=== PATIENT | male | born 1975 | race Caucasian/White ===

== ENCOUNTER 2021-08-03 12:13 | Emergency (ER) | payer MEDICAID ==
[~2021-08-03] VITALS: Ht 182.9 cm; Wt 68.2 kg
[2021-08-03 12:15] VITALS: BP 126/95
--- NOTE | 2021-08-03 13:02 | PHYS DOC ---
Past Medical History Additional Past Medical Histor: EPILEPSY, PROSTATE CANCER Past Surgical History: No Surgical History General Adult EDM: Chief Complaint: FOOT INJURY PAIN HPI: HPI: Patient is a 46-year-old male who presents to the emergency department for right heel pain. Patient reports that he had a seizure yesterday and fell in August and injured his right foot. He rates his pain 3 out of 10. It is worse with bearing weight. Patient also has several abrasions noted to the top of his head , forehead and across the bridge of his nose. He reports hitting his head. He is also complaining of bilateral posterior rib pain. He used to take Keppra and Topamax for his seizures but has been off his medications for 3 months because he stated that it does not help him. Prior to yesterday his last seizure was 2 weeks ago. Patient denies any nausea, vomiting, fevers, chest pain, shortness of breath. He states that he has chronic neck and back pain. Review of Systems: Review of Systems: 14 body systems of the review of systems have been reviewed. See HPI for pertinent positive and negative responses, otherwise all other systems are negative, nonpertinent or noncontributory Heart Score: C/O Chest Pain: No Risk Factors: Risk Factors: DM, Current or recent (<one month) smoker, HTN, HLP, family history of CAD, obesity. Risk Scores: Score 0 - 3: 2.5% MACE over next 6 weeks - Discharge Home Score 4 - 6: 20.3% MACE over next 6 weeks - Admit for Clinical Observation Score 7 - 10: 72.7% MACE over next 6 weeks - Early Invasive Strategies Physical Exam: PE: Constitutional: Well developed, well nourished, no acute distress, non-toxic appearance. [] HENT: Normocephalic, 1 cm abrasion noted across the bridge of patient's nose, 1 cm abrasion noted to forehead, 3 cm abrasion noted to top right side of head, bilateral external ears normal, oropharynx moist, no oral exudates, nose normal. [] Eyes: PERRL, 4 mm pupils bilaterally, EOMI, conjunctiva normal, no discharge. [] Neck: Normal range of motion, no bony spinal tenderness, supple, no stridor. [] Cardiovascular:Heart rate regular rhythm, no murmur [] Lungs & Thorax: Bilateral breath sounds clear to auscultation, no flail chest, no obvious deformity, no wounds [] Abdomen: Bowel sounds normal, soft, no tenderness, no masses, no pulsatile masses. [] Skin: Warm, dry, no erythema, no rash. [] Back: No bony spinal tenderness, normal range of motion Extremities: No tenderness, no cyanosis, no clubbing, ROM intact, no edema. [] Right foot: Pain with palpation to right heel, range of motion intact, neuro intact, no open wounds, no obvious deformity Neurologic: Alert and oriented X 3, normal motor function, normal sensory function, no focal deficits noted. [] Psychologic: Affect normal, judgement normal, mood normal. [] Current Patient Data: Labs: Laboratory Tests Test 08/03/21 13:45 White Blood Count 5.0 x10^3/uL Red Blood Count 5.08 x10^6/uL Hemoglobin 15.7 g/dL Hematocrit 44.7 % Mean Corpuscular Volume 88 fL Mean Corpuscular Hemoglobin 31 pg Mean Corpuscular Hemoglobin Concent 35 g/dL Red Cell Distribution Width 14.8 % Platelet Count 134 x10^3/uL Neutrophils (%) (Auto) 86 % Lymphocytes (%) (Auto) 8 % Monocytes (%) (Auto) 7 % Eosinophils (%) (Auto) 0 % Basophils (%) (Auto) 0 % Neutrophils # (Auto) 4.3 x10^3/uL Lymphocytes # (Auto) 0.4 x10^3/uL Monocytes # (Auto) 0.3 x10^3/uL Eosinophils # (Auto) 0.0 x10^3/uL Basophils # (Auto) 0.0 x10^3/uL Sodium Level 131 mmol/L Potassium Level 4.0 mmol/L Chloride Level 93 mmol/L Carbon Dioxide Level 30 mmol/L Anion Gap 8 Blood Urea Nitrogen 14 mg/dL Creatinine 1.0 mg/dL Estimated GFR (Cockcroft-Gault) 80.4 BUN/Creatinine Ratio 14 Glucose Level 94 mg/dL Calcium Level 9.3 mg/dL Total Bilirubin 0.9 mg/dL Aspartate Amino Transf (AST/SGOT) 129 U/L Alanine Aminotransferase (ALT/SGPT) 70 U/L Alkaline Phosphatase 176 U/L Troponin I High Sensitivity 4 ng/L Total Protein 9.1 g/dL Albumin 3.8 g/dL Albumin/Globulin Ratio 0.7 Vital Signs: Vital Signs Date Time Temp Pulse Resp B/P (MAP) Pulse Ox O2 Delivery O2 Flow Rate FiO2 08/03/21 12:15 98.4 102 18 126/95 (105) 95 Room Air 98.4 EKG: EKG: [] Radiology/Procedures: Radiology/Procedures: []PROCEDURE: FOOT RIGHT 3V Study: XR FOOT_RIGHT 3 VIEWS Indication: Fall. Foot pain. Comparison: None. Findings: No displaced fracture. Alignment is within normal limits considering the absence of weightbearing. Maintained joint spaces. Unremarkable soft tissues. Impression: No displaced fracture or malalignment. Electronically signed by: LEÓN ORONA MD (08/03/2021 1:39 PM) [facility] DICTATED and SIGNED BY: LEÓN ORONA MD DATE: 08/03/21 [id number] 0 PROCEDURE: RIBS BILAT 3V Exam:Bilateral ribs with PA chest Date: 08/03/2021 12:58 PM Comparison: No prior Indication: Reason: fall, foot pain, chest pain Findings/ Impression: The heart is not enlarged. Mediastinal and hilar contours are normal. No focal parenchymal airspace opacity. No pleural effusion or pneumothorax. AP, Oblique and Spot images of the bilateral ribs are negative for acute displaced rib fracture. Old anterolateral left rib fractures are seen. Negative focal pleural elevation. Symmetrical intercostal spacing. It is of note that an acute non-displaced rib fracture can be in-apparent on initial post-trauma imaging. Electronically signed by: Sam Woo MD (08/03/2021 3:00 PM) [email or web address] DICTATED and SIGNED BY: SAM WOO MD DATE: 08/03/21 [id number] 0 PROCEDURE: CT HEAD AND CERVICAL SPINE WO STUDY: CT head and cervical spine without contrast INDICATION: Fall. Seizure. COMPARISON: None available. TECHNIQUE: Axial CT imaging through the head and cervical spine without the use of intravenous contrast. Sagittal and coronal reformats were obtained. One or more of the following individualized dose reduction techniques were utilized for this examination: 1. Automated exposure control 2. Adjustment of the mA and/or kV according to patient size 3. Use of iterative reconstruction technique. FINDINGS: CT head: No acute intracranial hemorrhage. Quick-white matter differentiation is maintained. No localized mass effect, midline shift or hydrocephalus. Symmetric positioning of the globes. Unremarkable retrobulbar soft tissues. Intact calvarium. CT cervical spine: No acute fracture or traumatic malalignment. No paraspinous hematoma. No significant osseous encroachment on the central canal or neural foramina. Unremarkable thyroid and lung apices. IMPRESSION: CT head: 1. No acute intracranial abnormality by CT. CT cervical spine: 1. No acute fracture or traumatic malalignment. Electronically signed by: LEÓN ORONA MD (08/03/2021 2:17 PM) [facility] DICTATED and SIGNED BY: LEÓN ORONA MD DATE: 08/03/21 [id number] 0 Course & Med Decision Making: Course & Med Decision Making Pertinent Labs and Imaging studies reviewed. (See chart for details) Patient presents to the emergency department for right foot pain after falling while having a seizure. Patient has several abrasions to his face and head. He is also reporting bilateral posterior rib pain. Work-up in the ER consisted of blood work, CT imaging of head and neck, bilateral rib x-rays. X-ray of the foot was unremarkable. Post op shoe given to patient. X-ray of ribs showed no acute findings. Lab work showed elevated liver enzymes but other than that unremarkable. Patient will need to follow-up with his primary care provider regarding the elevated LFTs. CT imaging of head and neck were negative for any acute findings. Patient advised to follow-up with his primary care provider or neurologist regarding his seizure medications. Patient reported that he did not have anymore of his seizure medications, his dosages were confirmed with pharmacy and he was discharged home with prescriptions. Patient also educated that due to these break through seizures, he should not drive a vehicle or operate machinery. Patient reports that he doesnt have a license because he got into trouble due to alcohol and got it taken away and doesnt drive. His alcohol use could be the cause of his elevated LFTs. I discussed with patient all findings and diagnostic testing as well as the need to follow-up with PCP for f urther evaluation and treatment or return to the ER if any new or worsening symptoms. Strict return precautions were also discussed at length. Patient voiced understanding and agreement with the plan. Patient is hemodynamically stable at the time of disposition. Dragon Disclaimer: Dragon Disclaimer: This electronic medical record was generated, in whole or in part, using a voice recognition dictation system. Departure Departure Impression: Primary Impression: Foot sprain Qualified Codes: S93.601A - Unspecified sprain of right foot, initial encounter Additional Impression: Seizure Disposition: HOME / SELF CARE / HOMELESS Condition: GOOD Patient Instructions: RICE - Routine Care for Injuries, Seizure, Adult Additional Instructions: You were seen in the emergency department today for right foot pain after injuring yourself during a seizure yesterday. X-ray of your foot was negative for any acute findings. To help with your foot pain, you are being placed in a postop shoe for support. Wear this for comfort. For your pain you can take ibuprofen or naproxen at home. The imaging of your head and neck were negative for any acute findings. Your blood work was mostly unremarkable other than elevated liver enzymes, this could be caused by many things like alcohol use or fatty liver disease. You need to follow-up with your primary care provider regarding these findings. You are being discharged home with prescriptions for Keppra, use this as directed. As we discussed, you cannot drive a vehicle or operate a vehicle since you are having break through seizures. I would advise you to continue taking your Keppra and Topamax as previously prescribed. Call your primary care provider tomorrow regarding your ER visit to set up a appointment. Return to the emergency department if you injure yourself again, have a seizure, chest pain, shortness of breath, new or worsening concerns. If you do not have a primary care provider to follow-up with, please see a handout of some primary care providers that you can contact tomorrow to follow- up. Scripts Levetiracetam (KEPPRA) 500 Mg Tablet 1 TAB PO BID for seizure for 30 Days, #60 TAB 0 Refills Prov: WILLOW FOSS APRN 08/03/21 WILLOW FOSS APRN Aug 03, 2021 13:02
--- NOTE | 2021-08-03 13:41 | RAD ---
Study: XR FOOT_RIGHT 3 VIEWS Indication: Fall. Foot pain. Comparison: None. Findings: No displaced fracture. Alignment is within normal limits considering the absence of weightbearing. Ma intained joint spaces. Unremarkable soft tissues. Impression: No displaced fracture or malalignment. Electronically signed by: LEÓN ORONA MD (08/03/2021 1:39 PM) [facility]
[2021-08-03 13:54] LABS: BASO % 0 % (0-3); EOS % 0 % (0-3); HEMATOCRIT 44.7 % (39.0-53.0); HEMOGLOBIN 15.7 g/dL (13.0-17.5); LYMPH # 0.4 x10^3/uL (1.0-4.8); LYMPH % 8 % (24-48); MEAN CORPUSCULAR HEMOGLOBIN 31 pg (25-35); MEAN CORPUSCULAR HGB CONC 35 g/dL (31-37); MEAN CORPUSCULAR VOLUME 88 fL (79-100); MONO # 0.3 x10^3/uL (0.0-1.1); MONO % 7 % (0-9); NEUT # 4.3 x10^3/uL (1.8-7.7); NEUT % 86 % (31-73); PLATELET COUNT 134 x10^3/uL (140-400); RED BLOOD COUNT 5.08 x10^6/uL (4.30-5.70); RED CELL DISTRIBUTION WIDTH 14.8 % (11.5-14.5)
[2021-08-03 14:06] LABS: CALCIUM 9.3 mg/dL (8.5-10.1); GFR 80.4
[2021-08-03 14:11] LABS: ALBUMIN 3.8 g/dL (3.4-5.0); ALBUMIN/GLOBULIN RATIO 0.7 (1.0-1.7); TOTAL BILIRUBIN 0.9 mg/dL (0.2-1.0); TOTAL PROTEIN 9.1 g/dL (6.4-8.2)
--- NOTE | 2021-08-03 14:19 | RAD ---
STUDY: CT head and cervical spine without contrast INDICATION: Fall. Seizure. COMPARISON: None available. TECHNIQUE: Axial CT imaging through the head and cervical spine without the use of intravenous contra st. Sagittal and coronal reformats were obtained. One or more of the following individualized dose reduction techniques were utilized for this examinat ion: 1. Automated exposure control 2. Adjustment of the mA and/or kV according to patient size 3. Use of iterative reconstruction technique. FINDINGS: CT head: No acute intracranial hemorrhage. Quick-white matter differentiation is maintained. No localized mass effect, midline shift or hydrocephalus. Symmetric positioning of the globes. Unremarkable retrobulbar soft tissues. Intact calvarium. CT cervical spine: No acute fracture or traumatic malalignment. No paraspinous hematoma. No significant osseous encroach ment on the central canal or neural foramina. Unremarkable thyroid and lung apices. IMPRESSION: CT head: 1. No acute intracranial abnormality by CT. CT cervical spine: 1. No acute fracture or traumatic malalignment. Electronically signed by: LEÓN ORONA MD (08/03/2021 2:17 PM) [facility]
--- NOTE | 2021-08-03 15:02 | RAD ---
Exam:Bilateral ribs with PA chest Date: 08/03/2021 12:58 PM Comparison: No prior Indication: Reason: fall, foot pain, chest pain Findings/ Impression: The heart is not enlarged. Mediastinal and hilar contours are normal. No focal parenchymal airspace o pacity. No pleural effusion or pneumothorax. AP, Oblique and Spot images of the bilateral ribs are negative for acute displaced rib fracture. Old anterolateral left rib fractures are seen. Negative focal pleural elevation. Symmetrical intercostal spacing. It is of note that an acute non-displaced rib fracture can be in-apparent on initial post-trauma imag ing. Electronically signed by: Sam Denise MD (08/03/2021 3:00 PM) [email or web address]
[2021-08-03] MEDS ORDERED: LEVE500T56 PO (15:44)
== END 2021-08-03 15:52 | disposition home or self-care (01) ==
LOC: ER 12:13
DX: S93.601A Unspecified sprain of right foot, initial encounter (principal); S00.31XA Abrasion of nose, initial encounter; S00.81XA Abrasion of other part of head, initial encounter; G40.909 Epilepsy, unspecified, not intractable, without status epilepticus; R07.89 Other chest pain; W18.39XA Other fall on same level, initial encounter; Y93.89 Activity, other specified; Y92.89 Other specified places as the place of occurrence of the external cause; Y99.8 Other external cause status
CPT/HCPCS: 36415; 70450; 71110; 72125; 73630; 80053; 84484; 85025; 99285-25

== ENCOUNTER 2021-11-27 16:05 | Emergency (ER) | payer MEDICAID ==
[~2021-11-27] VITALS: Ht 182.9 cm; Wt 68.1 kg
[~2021-11-27 16:05] MED LIST: LEVE500T56 PO
[2021-11-27] MEDS ORDERED: BACITRACIN TOPICAL OINT PACKET. TP ONE (16:45)
[2021-11-27] MEDS ORDERED: DIPHTH,PERTUSS(ACELL),TET TOX 0.5 ML DISP.SYRIN. VAX IM ONE (16:45)
[2021-11-27] MEDS ORDERED: ONDANSETRON PF 4 MG/2 ML VIAL. IVP ONE (17:00)
[2021-11-27] MEDS ORDERED: levETIRAcetam 1,000mg PREMIX 100 ML IV ONE (17:00)
--- NOTE | 2021-11-27 17:12 | PHYS DOC ---
Past Medical History Additional Past Medical Histor: EPILEPSY, PROSTATE CANCER Past Surgical History: Other Additional Past Surgical Histo: L SHOULDER Smoking Status: Current Every Day Smoker Alcohol Use: Occasionally Adult General Chief Complaint Chief Complaint: SEIZURE HPI HPI Patient is a 46-year-old male with a history of epilepsy, longstanding, currently on Keppra, as well as daily alcohol abuse. He states he typically starts drinking first thing in the morning. He reports having multiple breakthrough seizures per week every week. Mr. Swan presents to the emergency department for evaluation following an apparent brief generalized seizure at home prior to arrival. Unclear why he was transported by EMS this time as he states the seizure he had prior to arrival was the same as his seizures typically are. He was initially postictal for EMS but became alert and oriented during transport and upon initial evaluation here in the emergency department is alert and oriented x4. Vital signs and blood glucose are appropriate. Patient has an abrasion to the bridge of his nose which he states does not hurt. He does not know how this was sustained. There are no other signs of any trauma. Patient reports drinking less alcohol than usual today and also thinks that he did not take his Keppra today. He believes that he last took his Keppra yesterday. He denies fevers, headache, focal or lateralizing weakness, numbness or tingling, neck stiffness/pain/meningismus, vision changes, shortness of breath or chest pain of any kind, abdominal pain of any kind, flank pain, midline back pain, dysuria, hematuria, polyuria or oliguria, changes in bowel habits. Review of Systems Review of Systems A 12 point review of systems was completed and was negative except where noted in HPI above. Current Medications Current Medications Current Medications Medications (Trade) Dose Ordered Sig/Kenan Start Time Stop Time Status Last Admin Dose Admin Bacitracin (Bacitracin Zinc Oint Pkt) 1 pkt 1X ONCE 11/27/21 16:45 11/27/21 16:49 DC 11/27/21 17:23 1 PKT Diphtheria/ Tetanus/Acell Pertussis (Boostrix) 0.5 ml ONCE ONCE 11/27/21 16:45 11/27/21 16:49 DC 11/27/21 17:15 0.5 ML Levetiracetam 100 ml @ 400 mls/hr 1X ONCE 11/27/21 17:00 11/27/21 17:14 DC 11/27/21 17:24 400 MLS/HR Lorazepam (Ativan Inj) 1.5 mg 1X ONCE 11/27/21 16:45 11/27/21 16:49 DC 11/27/21 17:23 1.5 MG Ondansetron HCl (Zofran) 4 mg 1X ONCE 11/27/21 17:00 11/27/21 17:01 DC 11/27/21 17:23 4 MG Sodium Chloride 1,000 ml @ 1,000 mls/hr 1X ONCE 11/27/21 17:15 11/27/21 18:14 11/27/21 17:23 1,000 MLS/HR Allergies Allergies Allergies Coded Allergies Type Severity Reaction Last Updated Verified No Known Drug Allergies 11/27/21 No Physical Exam Physical Exam 46-year-old male appearing nontoxic and in no acute distress. Head is normocephalic and with a mild abrasion noted to the bridge of the nose. This is nontender. No instability of the midface, malocclusion, hemotympanum bilaterally, other signs basilar fracture. Neck is supple and nontender. Oropharynx is moist. Lungs are clear to auscultation at all stations. There is a normal S1 and S2 without rubs or gallops and capillary refill is appropriate, less than 2 seconds globally. Abdomen is soft, nontender and nondistended. Skin is warm and dry without cyanosis, clubbing or edema. Psychiatrically, the patient demonstrates appropriate mood and affect and is alert. Neurologically, cranial nerves II through XII are intact and there are no lateralizing deficits seen. Speech is normal. Language is normal. Coordination is normal. There is no dysmetria finger-nose or [id number] bilaterally. Strength is 5 out of 5 in all joints of bilateral upper and lower extremities. Sensation is intact light touch in bilateral upper and lower extremities. Patient ambulates with a narrow, steady, non-ataxic gait here in the emergency department and is alert and oriented x4. Current Patient Data Vital Signs Vital Signs Date Time Temp Pulse Resp B/P (MAP) Pulse Ox O2 Delivery O2 Flow Rate FiO2 11/27/21 16:51 148 152/107 (122) 94 Room Air 11/27/21 16:05 98.6 16 98.6 Lab Values Laboratory Tests Test 11/27/21 17:08 White Blood Count 5.2 x10^3/uL (4.0-11.0) Red Blood Count 5.20 x10^6/uL (4.30-5.70) Hemoglobin 15.3 g/dL (13.0-17.5) Hematocrit 46.9 % (39.0-53.0) Mean Corpuscular Volume 90 fL (79-100) Mean Corpuscular Hemoglobin 29 pg (25-35) Mean Corpuscular Hemoglobin Concent 33 g/dL (31-37) Red Cell Distribution Width 14.0 % (11.5-14.5) Platelet Count 132 x10^3/uL (140-400) L Neutrophils (%) (Auto) 92 % (31-73) H Lymphocytes (%) (Auto) 3 % (24-48) L Monocytes (%) (Auto) 5 % (0-9) Eosinophils (%) (Auto) 0 % (0-3) Basophils (%) (Auto) 0 % (0-3) Neutrophils # (Auto) 4.8 x10^3/uL (1.8-7.7) Lymphocytes # (Auto) 0.2 x10^3/uL (1.0-4.8) L Monocytes # (Auto) 0.3 x10^3/uL (0.0-1.1) Eosinophils # (Auto) 0.0 x10^3/uL (0.0-0.7) Basophils # (Auto) 0.0 x10^3/uL (0.0-0.2) Segmented Neutrophils % 71 % (35-66) H Band Neutrophils % 16 % (0-9) H Lymphocytes % 5 % (24-48) L Monocytes % 8 % (0-10) Platelet Estimate Adequate (ADEQUATE) Sodium Level 137 mmol/L (136-145) Potassium Level 3.8 mmol/L (3.5-5.1) Chloride Level 94 mmol/L (98-107) L Carbon Dioxide Level 25 mmol/L (21-32) Anion Gap 18 (6-14) H Blood Urea Nitrogen 6 mg/dL (8-26) L Creatinine 1.3 mg/dL (0.7-1.3) Estimated GFR (Cockcroft-Gault) 59.4 Glucose Level 228 mg/dL (70-99) H Calcium Level 9.7 mg/dL (8.5-10.1) Ethyl Alcohol Level < 10 mg/dL (0-10) Laboratory Tests 11/27/21 17:08 Laboratory Tests 11/27/21 17:08 EKG EKG [] Radiology/Procedures Radiology/Procedures Exam Date: 11/27/2021 4:[address] HEAD/BRAIN WO Indication: Reason: seizure, head injury / Spl. Instructions: / History: . TECHNIQUE: Head CT was performed without intravenous contrast. One or more of the following dose reduction techniques were utilized: *Automated exposure control (AEC) *Adjustment of mA and/or kV according to patient size *Use of iterative reconstruction technique *CT scan done according to ALARA, or ALARA/IMAGE GENTLY FINDINGS: The ventricles and sulci are normal for the patient's stated age. There is no evidence of acute intracranial hemorrhage, extra-axial collection, mass effect, midline shift, or acute territorial infarct. No lesion of the skull base or the calvarium is seen. The visualized paranasal sinuses, mastoid air cells and orbits are normal in appearance. IMPRESSION: No evidence for acute intracranial abnormality. Electronically signed by: Dominic Berry MD (11/27/2021 5:25 PM) [email or web address] DICTATED and SIGNED BY: DOMINIC BERRY MD DATE: 11/27/21 [id number] [] Course & Med Decision Making Course & Med Decision Making 46-year-old gentleman with a history of seizure disorder and alcohol abuse. Has quite frequent breakthrough seizures and seems to have problems with compliance. Drank less than usual this morning and also forgot to take his Keppra. Vital signs and clinical examination are reassuring and neurologic examination is nonfocal. He does have some signs of trauma to his face, so will image head. Will check basic labs. We will give some fluids, some Ativan and loaded with Keppra. Will observe and if work-up is reassuring and patient has no further breakthrough seizure activity will plan to discharge home to follow- up closely with primary care and with his neurologist. Patient understands and agrees. 1800: Patient has been observed uneventfully for multiple hours here in the emergency department. Oriented x4, nonfocal neurologic exam on reassessment and resting comfortably. States he feels back to normal. Ambulatory with a narrow , steady, non-ataxic gait. Labs and imaging unremarkable. Will discharge home as per plan above. Patient has plenty of Keppra at home per him. He understands that if he feels worse instead of better or develops other new symptoms of concern that he should return to the emergency department immed iately for reevaluation. All questions are answered. Dragon Disclaimer Dragon Disclaimer This electronic medical record was generated, in whole or in part, using a voice recognition dictation system. Departure Departure Impression: Primary Impression: Other seizures Disposition: 01 HOME / SELF CARE / HOMELESS Condition: IMPROVED Referrals: LUCERO BELCHER MD Patient Instructions: Seizure, Adult Additional Instructions: Follow-up very closely with your primary care doctor in the office in the next 2 to 4 days for reevaluation of your symptoms and a discussion of next best steps in care. Take your home Keppra as prescribed. Follow-up very closely with your neurologist as well in the next 1 to 2 weeks for your breakthrough seizures. Do not drive until cleared to resume driving by your neurologist. Return to the emergency department right away for worsening symptoms of any kind or with any other new symptoms of concern. VICK GARCIA MD Nov 27, 2021 17:12
[2021-11-27] MEDS ORDERED: IV NORMAL SALINE 1000ML BAG 1,000 ML IV ONE (17:15)
[2021-11-27 17:16] LABS: BASO % 0 % (0-3); EOS % 0 % (0-3); HEMATOCRIT 46.9 % (39.0-53.0); HEMOGLOBIN 15.3 g/dL (13.0-17.5); LYMPH # 0.2 x10^3/uL (1.0-4.8); LYMPH % 3 % (24-48); MEAN CORPUSCULAR HEMOGLOBIN 29 pg (25-35); MEAN CORPUSCULAR HGB CONC 33 g/dL (31-37); MEAN CORPUSCULAR VOLUME 90 fL (79-100); MONO # 0.3 x10^3/uL (0.0-1.1); MONO % 5 % (0-9); NEUT # 4.8 x10^3/uL (1.8-7.7); NEUT % 92 % (31-73); PLATELET COUNT 132 x10^3/uL (140-400); WHITE BLOOD COUNT 5.2 x10^3/uL (4.0-11.0)
[2021-11-27 17:25] LABS: CALCIUM 9.7 mg/dL (8.5-10.1); CREATININE 1.3 mg/dL (0.7-1.3); GFR 59.4; POTASSIUM 3.8 mmol/L (3.5-5.1)
--- NOTE | 2021-11-27 17:28 | RAD ---
Exam Date: 11/27/2021 4:[address] HEAD/BRAIN WO Indication: Reason: seizure, head injury / Spl. Instructions: / History: . TECHNIQUE: Head CT was performed without intravenous contrast. One or more of the following dose re duction techniques were utilized: *Automated exposure control (AEC) *Adjustment of mA and/or kV according to patient size *Use of iterative reconstruction technique *CT scan done according to ALARA, or ALARA/IMAGE GENTLY FINDINGS: The ventricles and sulci are normal for the patient's stated age. There is no evidence of acute int racranial hemorrhage, extra-axial collection, mass effect, midline shift, or acute territorial infarc t. No lesion of the skull base or the calvarium is seen. The visualized paranasal sinuses, mastoid ai r cells and orbits are normal in appearance. IMPRESSION: No evidence for acute intracranial abnormality. Electronically signed by: Clint Berry MD (11/27/2021 5:25 PM) [id number]
[2021-11-27 17:41] LABS: % BANDS 16 % (0-9); % LYMPHS 5 % (24-48); % MONOS 8 % (0-10); % SEGS 71 % (35-66); PLT ESTIMATE ADEQUATE (ADEQUATE)
[2021-11-27 18:02] VITALS: BP 144/89
== END 2021-11-27 18:36 | disposition home or self-care (01) ==
LOC: ER 16:05
DX: G40.909 Epilepsy, unspecified, not intractable, without status epilepticus (principal); F17.200 Nicotine dependence, unspecified, uncomplicated
CPT/HCPCS: 36415; 70450; 80048; 85007; 85025; 90471; 90715; 96365; 96375; 99285; G0480; J2060; J2405; J7030